=== PATIENT | female | born 1955 ===

== ENCOUNTER 2020-11-04 09:19 | Day surgery (SDC) | payer OTHER | END 2020-11-04 13:50 | disposition home or self-care (01) | LOC: AMB-ENDOS 09:19 | PROVIDERS: ATTEND Colon & Rectal Surgery | DX: D13.1 Benign neoplasm of stomach (principal); Z20.822 Contact with and (suspected) exposure to COVID-19; Z12.11 Encounter for screening for malignant neoplasm of colon ==